=== PATIENT | female | born 1985 | race Caucasian/White ===

== ENCOUNTER 2022-08-19 08:30 | Outpatient (CLI) | payer BC, SELFPAY ==
[2022-08-19 17:55] LABS: Albumin* 4.3 g/dL (3.3-5.0)
[2022-08-19 17:56] LABS: Chloride* 106 mmol/L (96-114); Potassium* 4.5 mmol/L (3.6-5.1); Sodium* 138 mmol/L (135-149)
[2022-08-19 17:58] LABS: Bilirubin Total* 0.3 mg/dL (0.1-1.5); Carbon Dioxide* 24 mmol/L (20-32); Cholesterol* 239 mg/dL (90-199); Creatinine* 0.9 mg/dL (0.5-1.5); Estimated Glomerular Filt Rate 84 ml/min
[2022-08-19 17:59] LABS: Alanine Aminotransferase* 20 U/L (4-35); Alkaline Phosphatase* 98 U/L (40-150); Aspartate Amino Transferase* 26 U/L (12-35); Blood Urea Nitrogen* 15 mg/dL (5-24); Calcium* 8.3 mg/dL (8.4-10.6); Glucose* 88 mg/dL (60-115); HDL Cholesterol* 53 mg/dL (>=50); LDL Cholesterol Calculated 154 mg/dL (<100); Triglycerides* 161 mg/dL (40-149)
== END 2022-08-19 08:31 | disposition home or self-care (01) ==
PROVIDERS: PCP Physician Assistant Medical; Visit Provider Physician Assistant Medical
DX: Z01.419 Encounter for gynecological examination (general) (routine) without abnormal findings (principal); E03.9 Hypothyroidism, unspecified; I10 Essential (primary) hypertension; Z13.6 Encounter for screening for cardiovascular disorders
CPT/HCPCS: 80053; 80061; 84443

== ENCOUNTER 2023-08-19 08:08 | Outpatient (CLI) | payer BC, SELFPAY | END 2023-08-19 08:09 | disposition home or self-care (01) | LOC: NFLDREF 08-22 02:33 | PROVIDERS: PCP Physician Assistant Medical; Referring Provider Physician Assistant Medical; Visit Provider Physician Assistant Medical | DX: Z01.419 Encounter for gynecological examination (general) (routine) without abnormal findings (principal); E03.9 Hypothyroidism, unspecified; I10 Essential (primary) hypertension; R05.9 Cough, unspecified; Z78.9 Other specified health status; Z13.6 Encounter for screening for cardiovascular disorders | CPT/HCPCS: 80053; 80061; 84443 ==

== ENCOUNTER 2024-09-29 08:11 | Outpatient (CLI) | payer BC, SELFPAY | END 2024-09-29 08:12 | disposition home or self-care (01) | LOC: NFLDREF 10-03 02:29 | PROVIDERS: PCP Physician Assistant Medical; Referring Provider Physician Assistant Medical; Visit Provider Physician Assistant Medical | DX: I10 Essential (primary) hypertension (principal); E03.9 Hypothyroidism, unspecified; G43.009 Migraine without aura, not intractable, without status migrainosus; F32.0 Major depressive disorder, single episode, mild; J45.909 Unspecified asthma, uncomplicated; A60.04 Herpesviral vulvovaginitis; J32.0 Chronic maxillary sinusitis | CPT/HCPCS: 80053; 80061 ==

== ENCOUNTER 2025-01-03 14:33 | Outpatient (CLI) | payer OTHER, SELFPAY ==
--- NOTE | 2025-01-03 15:00 | CRLHL7_ITS ---
For Patients: As a result of the Century Cures Act, medical imaging exams and procedure reports are released immediately into your electronic medical record. You may view this report before your referring provider. If you have questions, please contact your health care provider. BILATERAL SCREENING MAMMOGRAM WITH COMPUTER-AIDED DETECTION AND TOMOSYNTHESIS TECHNIQUE: CC, MLO and Implant displaced views were obtained. These mammographic images have been obtained using full-field digital technique. These mammographic images were interpreted with the benefit of computer-aided detection. Breast Tomosynthesis was used in this interpretation. COMPARISON FILM: Baseline. FINDINGS: The breasts are heterogeneously dense, which may obscure small masses. IMPRESSION: There is no radiographic evidence for malignancy. ASSESSMENT: BI-RADS Category 2: Benign RECOMMENDATION: Routine screening mammogram in 1 year. A lay language report of this examination will be provided to the patient. Rodger Yap M.D. Diagnostic Radiologist [email or web address] SP/Dictated by: Rodger Yap MD @ 01/04/2025 1:17:00 PM (Electronically Signed)
== END 2025-01-03 14:34 | disposition home or self-care (01) ==
LOC: MAMMO 14:34
PROVIDERS: PCP Physician Assistant Medical; Visit Provider Physician Assistant Medical
DX: Z12.31 Encounter for screening mammogram for malignant neoplasm of breast (principal); R92.333 Mammographic heterogeneous density, bilateral breasts
CPT/HCPCS: 77063; 77067

== ENCOUNTER 2025-02-06 10:35 | Day surgery (SDC) | payer OTHER, SELFPAY ==
[2025-02-06] VITALS (17 sets, daily range): BP systolic 123–151; BP diastolic 58–96; PULSE 71–94; RESP 14–20; TEMP 35.9–36.9; O2SAT 96–99; BMI 31.5
--- OUTSIDE RECORDS SUMMARY | 2025-02-06 10:37 | XMS_ITS | Clinical Summary ---
[facility] Address [address], [place] [address] Care Team Providers Care Gateman Name Role Phone Unavailable Primary Care Provider Unavailabl e Source Comments You are receiving this document as you are listed as the primary care provider,follow-up provider, or the patient has been referred to you for consultation.This is in compliance with the Medicare andCity Hospital[facility] EHR Incentive Program,which states Providers who transition their patient to another setting of careor provider of care or refers their patient to another provider of care shouldprovide summary care record for each transition of care or referral. [facility] Allergies Active Allergy Reactions Criticality Noted Date Comments Influenza Virus Vaccine Anaphylaxis High 02/23/2021 Penicillins Anaphylaxis High 02/23/2021 Immunizations Immunization Administration Dates Next Due Moderna Monovalent 12+ 03/23/2021,02/23/2021 Social History Tobacco Use Types Packs/Day Years Used Date Smoking Tobacco: Never Assessed Comments Unknown Sex and Gender Information Value Date Recorded Sex Assigned at Not on file Legal Sex Female 3:29 AM CDT Gender Identity Not on file Sexual Orientation Not on file Plan of Treatment Health Maintenance Due Date Last Done Comments Cervical Cancer Screening Due 1983 Hep C Screening (Preventive Services) 1983 Mammogram 1983 HIV Screening (Preventive Services) 1999 Adult Preventive Visit 2001 HepB (1) 2002 COVID-19 Vaccine ( - 2023-2 5 season) 2024 03/23/2021, 02/23/2021 Influenza (#1) 2024 08/17/2019 DTaP/Tdap/Td (3 - Tdap) 02/03/2026 02/04/20 16, 09/07/2013 Zoster/Shingles (1 of 2) 2033 HPV Vaccine Aged Out No longer eligi ble based on patient's age to complete this topic HepA Aged Out No longer eligi ble based on patient's age to complete this topic Hib Aged Out No longer eligi ble based on patient's age to complete this topic IPV (Polio) Aged Out No longer eligi ble based on patient's age to complete this topic MCV4 Aged Out No longer eligi ble based on patient's age to complete this topic Meningococcal B Aged Out No longer el igible based on patient's age to complete this topic Pneumococcal Aged Out No longer eligi ble based on patient's age to complete this topic Insurance [employer] [facility] [employer]AL
--- OUTSIDE RECORDS SUMMARY | 2025-02-06 10:37 | XMS_ITS | Clinical Summary ---
Author Organization [facility] Address [address] [place] [id number] Care Team Providers Care Paper Final Inspector Name Role Phone Codi Qureshi MD Primary Care Provider Allergies Active Allergy Reactions Criticality Noted Date Comments Egg Derived Other - Describe In Comment Field High 02/09/2012 Throat swells Mustard Tongue Swelling 06/21/2012 Mustard seed-swelling under the tongue Penicillins Hives High 02/09/2012 Throat swells Medications drospirenone-e thinyl estradiol (OCELLA) 3-0.03 mg tablet Take 1 tablet by mouth once daily. 1 Package 0 2 Active cetirizine (ZYRTEC) 10 mg tablet Take 1 tablet by mouth once daily. 0 2 Active montelukast (SINGULAIR) 10 mg tablet Take 1 tablet by mouth at bedtime. 0 2 Active acyclovir (ZOVIRAX) 800 mg tablet Take by mouth. Pt takes 1 tab daily 50 tablet 0 2 Active fluticasone-sa lmeterol (ADVAIR DISKUS) 250-50 mcg/Dose diskus inhaler Inhale 1 Puff by mouth 2 times daily. 1 Inhaler 0 2 Active levothyroxine (SYNTHROID) 88 mcg tablet Take 1 tablet by mouth once daily. 0 2 Active fluticasone, 50 mcg per actuation, nasal (FLONASE) 50 mcg/actuation nasal spray Inhale 2 Sprays into both nostrils once daily. 1 Bottle 0 2 Active omega-3 fatty acids-vitamin E (FISH OIL) 1,000 mg Cap Take by mouth once daily. 0 2 Active Cyanocobalamin (VITAMIN B-12) 2,000 mcg tablet Take 1 tablet by mouth once daily. 0 2 Active cholecalcifero l (VITAMIN D-3) 2,000 unit capsule Take 1 capsule by mouth once daily. 0 2 Active albuterol (PROVENTIL) 0.083 % neb solutionIndica tions:Unspecif ied asthma(493.90) Inhale 3 mL via a nebulizer every hour if needed for Wheezing. One ampule in nebulizer as needed 25 Neb 0 2 Active albuterol HFA (PRO-AIR,KOMAL TOMMY,PROVENTIL) 90 mcg/actuation inhalerIndicat ions:Unspecifi ed asthma(493.90) Inhale 2 Puffs by mouth every 4 hours if needed for Wheezing. 1 Inhaler 3 2 Active Potassium Gluconate 595 (99) mg tablet Take by mouth. 0 2 Active sertraline (ZOLOFT) 50 mg tablet Take 1 tablet by mouth once daily. 0 2 Active EPINEPHrine (EPIPEN) 0.3 mg/0.3 mL (1:1,000) injection Inject 0.3 mg intramuscular one time if needed for Allergic Reaction for 1 dose. 2 Each 3 Active Immunizations Immunization Administration Dates Next Due Hepatitis B (Adult) 10/29/2012,09/13/2012 Social History Tobacco Use Types Packs/Day Years Used Date Smoking Tobacco: Never Smokeless Tobacco: Never Alcohol Use Standard Drinks/Week Comments Not Asked 0 (1 standard drink = 0.6 oz pur e alcohol) Comments Unknown Sex and Gender Information Value Date Recorded Sex Assigned at Not on file Legal Sex Female 8:27 AM RESPIRATORY CARE PRACTITIONER Gender Identity Not on file Sexual Orientation Not on file Obstetrics History Last Filed Vital Signs Vital Sign Reading Time Taken Comments Blood Pressure 133/86 11/15/2012 10:54 AM RESPIRATORY CARE PRACTITIONER Pulse 105 11/15/2012 10:54 AM RESPIRATORY CARE PRACTITIONER Temperature 36.3 C (97.4 F) 02/09/2012 9:34 AM CDT Respiratory Rate - - Oxygen Saturation - - Inhaled Oxygen Concentration - - Weight 86.9 kg (191 lb 9.6 oz) 06/21/2012 2:14 P M CDT Height 167.6 cm (5' 6) 02/09/2012 9:34 AM CDT Body Mass Index 30.93 02/09/2012 9:34 AM CDT Plan of Treatment Health Maintenance Due Date Last Done Comments Tdap 1994 Depression screening for age 12+ 1995 HIV for age 15-65 1998 BMI (ht and wt on same day) for age 18+ 2001 Hepatitis C screening for age 18-79 2001 Tetanus booster 2003 COVID-19 vaccine series (2023- season) 2024 03/23/2021, 02/23/2021 Influenza Vaccine (Season Ended) 2025 Pap test for age 21-65 08/19/2025 , 08/19/2022, 05/28/2017, Additional history exists Pneumococcal series for age 6-49 Aged Out No longer eligible based on patient's age to complete this topic Procedures Procedure Name Priority Date/Time Associated Diagnosis Comments HPV HIGH RISK Routine 08/19/2022 8:30 AM CDT from Last 3 Months or Most Recently Relevant to Health Maintenance Results * HPV HIGH RISK (08/19/2022 8:30 AM CDT) TYPE 16 Negative Negative 08/22/2022 11:13 AM CDT [facility] [employer] [facility] TYPE 18 Negative Negative 08/22/2022 11:13 AM CDT [facility] OTHER HIGH RISK TYPES Negative Negative 08/22/2022 11:13 AM CDT [facility] Other (Cervical) 08/19/2022 8:30 AM CDT 08/20/2022 7:46 AM CDT [facility] - 08/22/2022 11:13 AM CDT HPV types 16, 18, 31, 33, 35, 39, 45, 51, 52, 56, 58, 59, 66 and 68 DNA were undetectable or below the pre-set threshold. Methodology: Abelardo Kathryn 4800 HPV Test us Amy Calles PA-C MICROBIOLOGY Final Result [facility] [address] [place] [address], [place] from Last 3 Months or Most Recently Relevant to Health Maintenance Insurance [facility] Care Teams Paper Final Inspector Relationship Specialty Start Date End Date Codi Qureshi MD PCP - General Family Practice 09/29/12
--- OUTSIDE RECORDS SUMMARY | 2025-02-06 10:37 | XMS_ITS | Clinical Summary ---
Author Organization [facility] Address [address] , [address] [place] [address] Phone Care Team Providers Care Medical Receptionist Medical Assistant Name Role Phone Crystal Macias Unavailable Unavailable Conditions or Problems Problem Name Problem Code Onset Date Status Entry Date Provider Comment Standard Description Annotate Migraine headaches 37610238 (SNOMED CT) Active Tom Sandoval MD Migraine Medications Medication Instructions Start Date Stop Date Generic Name NDC Provider TOPIRAMATE 25 MG CPSP topiramate [id number] Tom Sandoval MD TOPIRAMATE 25 MG TABS Take 1 tablet by mouth twice a day 0 topiramate [id number] Tom Sandoval MD MONTELUKAST SODIUM 10 MG TABS montelukast [id number] Tom Sandoval MD WEGOVY 0.5 MG/0.5ML SOAJ semaglutide (weight loss) [id number] Tom Sandoval MD TOPIRAMATE 25 MG CPSP topiramate [id number] Tom Sandoval MD DUPIXENT 300 MG/2ML SOAJ dupilumab [id number] Tom Sandoval MD Medications Administered No information available. 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 Telemedicine: Telemedicine V isit Med Follow up r/s from 12/06 Pt r/s fax MEDS REVIEW Done Documenta tion of current medications (procedure) Plan of Care Type Date Detail Pending order Follow up Pending order Patient Instruct ions Pending order Follow up DAVONTE Pending order Patient Instruct ions Procedures Code Procedure Name Date Entry Date ORDERS Follow up DAVONTE [facility]-[id number] Documentation of current medicatio ns [id number] Established Patient Audio-Video- Low MDM or 20 minutes ORDERS Patient Instructions ORDERS Patient Instructions [facility]-[id number] Documentation of current medicatio ns [id number] Occipital nerve bloc k (Greater ONB) bilateral [id number] Lesser ONB/3rd ONB/Auricular/Preauricular,bilateral Vital Signs No information available. Immunizations No information available. Advance Directives No information available.
--- NOTE | 2025-02-06 10:54 | CRLHL7_ITS ---
For Patients: As a result of the Century Cures Act, medical imaging exams and procedure reports are released immediately into your electronic medical record. You may view this report before your referring provider. If you have questions, please contact your health care provider. Indication: Right upper quadrant abdominal pain Technique: Sonography was performed limited to the structures discussed below. Comparison: None Findings: The common bile duct measures 5 millimeters which is normal. The gallbladder wall is abnormally thickened at 4 millimeters. Greater than 3 millimeters is considered abnormal. No pericholecystic fluid noted. There was a reported sonographic Jorgensen`s sign. Sludge is noted with probable noncalcified stones within the sludge. There is also a small shadowing echogenic focus in the gallbladder neck that probably represents a stone. Combined findings raise the possibility of very early acute cholecystitis which should be considered in the appropriate clinical setting. Appropriate consultation is advised. Impression: Combined findings raise the possibility of very early acute cholecystitis in the appropriate clinical setting. Appropriate consultation is advised. Dictated by Naveed Cadena MD @ 02/06/2025 11:25:30 AM (Electronically Signed)
--- NOTE | 2025-02-06 11:05 | ED.ABDPAIN ---
HPI - Abdominal Pain General Date Seen: 02/06/25 Chief Complaint: Abdominal Pain Stated Complaint: stabbing pain in right abdominal area Time Seen by Provider: 02/06/25 10:38 Source: patient Mode of arrival: ambulatory Limitations: no limitations History of Present Illness HPI narrative: Patient is a 39-year-old female with no pertinent medical problems presenting to the emergency department for right upper quadrant abdominal pain. She states starting 3 days ago she started having right upper quadrant pain. Pain is worse after she eats and when she lays down. Pain improves when she is sitting. States the pain is sharp stabbing pain in the right upper quadrant. Has not noticed any fevers or chills. Did not come in initially because she thought it was constipation but and she will bowel movement this morning with no improvement in her symptoms. She states the bowel movement was otherwise normal. Has had no previous abdominal surgeries. Has a decreased appetite due to the pain with eating. Last had a glass some mild Crohn 21:00 yesterday. Has not eaten or drink anything further since then. Does states she is feeling dehydrated. Denies chest pain, shortness of breath, headache, lightheadedness, dizziness, weakness, numbness. No other concerns noted at this time. Related Data Home Medications ?Medication ?Instructions ?Recorded ?Confirmed dupilumab 300 mg/2 mL subcutaneous 300 mg subcut .as Direc 08/19/22 02/06/25 syringe semaglutide (weight loss) 0.5 0.5 mg subcut QWEEK 08/18/24 02/06/25 mg/0.5 mL subcutaneous pen injector (Madai) levothyroxine 100 mcg tablet 100 mcg PO DAILY 02/06/25 02/06/25 topiramate 25 mg sprinkle capsule 25 mg PO BID 02/06/25 02/06/25 Previous Rx's ?Medication ?Instructions ?Recorded albuterol sulfate 90 mcg/actuation 2 puff inhalation Q4-6H PRN 08/19/23 aerosol inhaler shortness of breath or wheezing #6.7 grams norgestimate 0.25 mg-ethinyl 1 tab PO QDAY #84 tabs 09/29/24 estradiol 0.035 mg tablet (Sprintec (28)) sertraline 100 mg tablet 200 mg (2 x 100 mg) PO QDAY #180 09/29/24 tabs valacyclovir 500 mg tablet 500 mg PO DAILY #90 tabs 09/29/24 lisinopril 20 mg tablet 20 mg PO DAILY #90 tabs 10/25/24 hydrocodone 5 mg-acetaminophen 325 1 tab PO Q6H PRN pain #15 tabs 02/06/25 mg tablet sennosides 8.6 mg capsule (senna) 8.6 mg PO DAILY PRN constipation 02/06/25 #90 caps Allergies Allergy/AdvReac Type Severity Reaction Status Date / Time egg yolk Allergy Severe Chest Pain Verified 02/06/25 10:46 penicillin V Allergy Severe Swelling Verified 02/06/25 10:46 of Lip/Tongue/Throat banana Allergy Mild itchy Verified 02/06/25 10:46 inner ear mechlorethamine Allergy Mild makes me Verified 02/06/25 10:46 sick mustard Allergy Mild makes me Verified 02/06/25 10:46 sick kiwi Allergy Unknown scratchy Verified 02/06/25 10:46 throat seasonal Allergy Mild Uncoded 09/29/24 07:34 Review of Systems Status of ROS Reports: 10 or more systems reviewed and unremarkable except as noted in History and below [facility] Medical History Bronchitis ?J40 - Bronchitis, not specified as acute or chronic (ICD-10) Surgical History History of sinus surgery ?Z98.890 - Other specified postprocedural states (ICD-10) History of section ?Z98.891 - History of uterine scar from previous surgery (ICD-10) History of breast augmentation ?Z98.82 - Breast implant status (ICD-10) History of anterior cruciate ligament surgery (01/26/12) ?Z98.890 - Other specified postprocedural states (ICD-10) Family History Paternal Grandfather Diabetes High cholesterol High blood pressure Paternal Grandmother Diabetes High cholesterol High blood pressure Maternal Grandfather Heart disease Skin cancer Maternal Grandmother Heart disease Skin cancer Father High cholesterol High blood pressure Sister High blood pressure Mother Skin cancer Social History Narrative: consumes alcohol occasionally, does not use illicit drugs, non smoker, oral contraceptives as primary control What is your current living situation?: I presently have a place to live Problems where you live: no known problems In the past 12 months, utilities in danger of being shut off: no In past 12 months, lack of transportation kept you from medical appts, meetings, work, or getting things needed for daily living: no In the past 12 mos, have been you worried that your food would run out before you had money to buy more?: never true In the past 12 mos, the food you bought just didn't last and you didn't have money to buy more?: never true Smoking Status: Never smoker Do you use any of these nicotine containing products: None How often do you have a drink containing alcohol: 2-4 times a month AUDIT-C Alcohol total score: 2 Non-prescribed substance use: denies use How often does anyone, including family, friends and others, physically hurt you: never How often does anyone, including family, friends and others, insult or talk down to you: never How often does anyone, including family, friends and others, threaten you with harm: never How often does anyone, including family, friends and others, scream or curse at you: never service: No Exam Narrative: Exam Narrative: Const: Well-nourished, Well-developed, in mild distress Eyes: PERRL, no conjunctival injection, and symmetrical lids HENT: Atraumatic external nose and ears. Moist mucous membranes. Neck: Symmetric, trachea midline, No thyromegaly. CVS: RRR, No murmurs or gallops. Peripheral pulses 2+ and equal in all extremities RESP: Unlabored respiratory effort. Clear to auscultation bilaterally. GI: Right upper quadrant tenderness, no tenderness noted rest of abdomen. Positive Jorgensen sign. Nondistended, No rebound or guarding. MSK:Extremities w/o deformity, Normal Active ROM Skin: Warm, Dry. No rashes or lesions. Neuro: Normal Muscle tone, No focal neurological deficits. Psych: Awake, Alert, & Oriented x3. Appropriate mood and affect. Const: Vital Signs, click to edit/add: Vital Signs - 24 hr 02/06/25 10:38 02/06/25 12:00 02/06/25 14:55 Temperature 98.5 F 98.5 F Pulse Rate 81 Pulse Rate [Pulse Oximeter] 90 86 Respiratory Rate 18 16 20 Blood Pressure 132/82 Blood Pressure [Ri ght Upper Arm] 145/94 H 134/96 H Pulse Oximetry 99 99 98 Oxygen Delivery Me thod Room Air Room Air Room Air 02/06/25 15:00 02/06/25 15:05 02/06/25 15:10 Temperature Pulse Rate 85 84 80 Pulse Rate [Pulse Oximeter] Respiratory Rate 17 16 16 Blood Pressure 130/83 129/78 124/76 Blood Pressure [Ri ght Upper Arm] Pulse Oximetry 97 97 96 Oxygen Delivery Me thod 02/06/25 15:15 02/06/25 15:20 02/06/25 15:30 Temperature 97.7 F 96.6 F L Pulse Rate 78 80 88 Pulse Rate [Pulse Oximeter] Respiratory Rate 14 16 16 Blood Pressure 128/77 123/75 124/82 Blood Pressure [Ri ght Upper Arm] Pulse Oximetry 97 96 98 Oxygen Delivery Me thod Room Air 02/06/25 15:30 02/06/25 15:45 02/06/25 16:00 Temperature 96.6 F L 97.0 F L 97.6 F Pulse Rate 88 83 75 Pulse Rate [Pulse Oximeter] Respiratory Rate 16 16 16 Blood Pressure 124/82 126/81 133/87 Blood Pressure [Ri ght Upper Arm] Pulse Oximetry 98 98 98 Oxygen Delivery Me thod Room Air Room Air Room Air 02/06/25 16:15 02/06/25 16:30 02/06/25 17:00 Temperature 97.5 F L 97.5 F L 97.5 F L Pulse Rate 71 73 74 Pulse Rate [Pulse Oximeter] Respiratory Rate 16 16 16 Blood Pressure 143/92 H 143/86 H 142/92 H Blood Pressure [Ri ght Upper Arm] Pulse Oximetry 98 99 99 Oxygen Delivery Me thod Room Air Room Air Room Air Course Vital Signs Vital signs: Initial Vital Signs Temperature 98.5 F 02/06/25 10:38 Temperature Source Temporal Artery Scan 02/06/25 10:38 Pulse Rate 90 02/06/25 10:38 Respiratory Rate 18 02/06/25 10:38 Blood Pressure 145/94 H 02/06/25 10:38 Blood Pressure Mean 111 H 02/06/25 10:38 Blood Pressure Position Sitting 02/06/25 10:38 Pulse Oximetry 99 02/06/25 10:38 Oxygen Delivery Method Room Air 02/06/25 10:38 Vital Signs Temperature 98.5 F 02/06/25 10:38 Pulse Rate 90 02/06/25 10:38 Respiratory Rate 18 02/06/25 10:38 Blood Pressure 145/94 H 02/06/25 10:38 Pulse Oximetry 99 02/06/25 10:38 Oxygen Delivery Method Room Air 02/06/25 10:38 Temperature 97.5 F L 02/06/25 17:00 Pulse Rate 74 02/06/25 17:00 Respiratory Rate 16 02/06/25 17:00 Blood Pressure 142/92 H 02/06/25 17:00 Pulse Oximetry 99 02/06/25 17:00 Oxygen Delivery Method Room Air 02/06/25 17:00 Medications Administered Medications: Discontinued Medications Generic Name Dose Route Start Last Admin Trade Name Freq PRN Reason Stop Dose Admin Acetaminophen 650 mg 02/06/25 14:47 02/06/25 16:42 Acetaminophen 325 Mg Tablet PO 02/06/25 14:48 650 mg ONCE ONE Administration Bupivacaine HCl 30 ml 02/06/25 14:00 02/06/25 14:00 Bupivacaine 0.5% 30 Ml INJECTION 02/06/25 14:01 20 ml ONCE ONE Administration Ciprofloxacin 400 mg 02/06/25 13:12 02/06/25 13:50 Ciprofloxacin 400 Mg/200 Ml Inj IVPB 02/06/25 13:13 400 mg ONCE ONE Administration Lactated Ringer's 1,000 mls @ 1,000 mls/hr 02/06/25 10:54 02/06/25 11:34 Lactated Ringers 1000 Ml IV 02/06/25 11:53 1,000 mls/hr .Q1H ONE Administration Lactated Ringer's 1,000 mls @ 35 mls/hr 02/06/25 14:30 02/06/25 15:23 Lactated Ringers 1000 Ml IV 02/07/25 19:03 30 mls/hr .Q24H PAULINE Infusion Metronidazole 500 mg 02/06/25 13:12 02/06/25 13:50 Metronidazole 500 Mg/100 Ml For Iv IVPB 02/06/25 13:13 500 mg ONCE ONE Administration Morphine Sulfate 4 mg 02/06/25 12:11 02/06/25 12:19 Morphine 4 Mg/Ml Inj IVP 02/06/25 12:12 4 mg ONCE ONE Administration Ondansetron HCl 4 mg 02/06/25 12:11 02/06/25 12:19 Ondansetron 2 Mg/Ml Inj IVP 02/06/25 12:12 4 mg ONCE ONE Administration MDM - Abdominal Pain MDM Narrative Medical decision making narrative: Patient is a 39-year-old female presenting for right upper quadrant abdominal pain. By my concern is gallbladder disease. Could be cholelithiasis or cholecystitis do a positive Jorgensen sign. Will do a ultrasound for better evaluation. Also do a CBC, CMP, urinalysis, lipase, COVID/flu/RSV. She does states feeling dehydrated and a L of fluids will be given. She states she does not need anything for pain or nausea at this time. My concern for pancreatitis, diverticulitis, appendicitis is lower due to location of symptoms. Patient's lab work shows no concerning abnormalities. She did start having more pain so morphine given for pain and Zofran given for possible an associated nausea. Liver enzymes and lipase within normal limits. Ultrasound returned showing concerns of cholecystitis. I spoke to the on-call general surgeon, Dr. Velarde, she accepted the patient for surgery. Patient will be transferred to the OR. Lab Data Labs: Lab Results 02/06/25 02/06/25 Range/Units 11:30 Unknown WBC 5.34 (4.50-11.00) K/uL RBC 4.35 (4.00-5.20) m/uL Hgb 13.5 (12.0-16.0) gm/dL Hct 41.6 (33.0-51.0) % MCV 96 (80-100) fL MCH 31 (26-34) pg MCHC 33 (32-36) gm/dL RDW Coeff of Enrrique 12.4 (11.5-15.5) % Plt Count 210 (140-440) K/uL Neut % (Auto) 54.2 (42.0-72.0) % Lymph % (Auto) 32.2 (20-44) % [place] % (Auto) 6.4 (0.0-11.0) % Eos % (Auto) 6.6 (0.0-7.0) % Baso % (Auto) 0.4 (0.0-3.0) % Neut # (Auto) 2.90 (1.7-7.0) K/uL Lymph # (Auto) 1.72 (0.90-2.90) K/uL [place] # (Auto) 0.30 (0.00-0.90) K/UL Eos # (Auto) 0.35 (0.00-0.50) K/uL Baso # (Auto) 0.02 (0.00-0.30) K/uL Abs Immat Gran (auto) 0.01 (0.00-0.30) K/uL Imm/Tot Granulo (auto) 0.2 % Sodium 139 (135-149) mmol/L Potassium 4.0 (3.6-5.1) mmol/L Chloride 106 (96-114) mmol/L Carbon Dioxide 22 (20-32) mmol/L Anion Gap 11 (7-15) mEq/L BUN 10 (5-24) mg/dL Creatinine 0.9 (0.5-1.5) mg/dL Estimated Creat Clear 77.01 Estimated GFR 82 ml/min Glucose 90 (60-115) mg/dL Calcium 9.4 (8.4-10.6) mg/dL Total Bilirubin 0.6 (0.1-1.5) mg/dL Direct Bilirubin 0.3 (0.0-0.5) mg/dL AST 21 (12-35) U/L ALT 12 (4-35) U/L Alkaline Phosphatase 86 (40-150) U/L Total Protein 7.9 (6.0-8.3) g/dL Albumin 4.7 (3.3-5.0) g/dL Lipase 87 (23-300) U/L Urine Color Dark yellow (Yellow) Urine Appearance Slightly Cloudy A (Clear) Urine pH 6.0 (5.0-8.5) Ur Specific [place] 1.025 (1.000-1.030) Urine Protein 1+ A (Negative) Urine Glucose (UA) Negative (Negative) Urine Ketones Trace A (Negative) Urine Blood Negative (Negative) Urine Nitrite Negative (Negative) Urine Bilirubin 1+ A (Negative) Urine Urobilinogen 0.2 (0.2-1.0) Ur Leukocyte Esterase Negative (Negative) Urine RBC 0-2 (0-2) Urine WBC 0-2 (0-5) Ur Squamous Epith Cells Many A (None-Few) Amorphous Sediment Many A (None) Urine Bacteria Many A (None) Urine Mucus Many A (None) SARS-CoV-2 (PCR) Negative SARS-CoV-2 (Negative) Influenza Type A (PCR) Negative PCR FLU A (Negative) Influenza Type B (PCR) Negative PCR FLU B (Negative) RSV (PCR) Negative PCR RSV (Negative) Imaging Data Gallbladder ultrasound: Attestation: I have reviewed the pertinent imaging results. Radiologist's impression: Combined findings raise the possibility of very early acute cholecystitis in the appropriate clinical setting. Appropriate consultation is advised. Dictated by Naveed Cadena MD @ 02/06/2025 11:25:30 AM Discharge Plan Discharge Clinical Impression: Acute cholecystitis Patient Disposition: XFER to OR Condition: Stable
[2025-02-06] MEDS: LACTATED RINGERS 1000 ML 1,000 ML IV (11:34)
[2025-02-06 11:43] LABS: Appearance Urine Slightly Cloudy (Clear); Bilirubin Urine 1+ (Negative); Blood Urine Negative (Negative); Color Urine Dark yellow (Yellow); Glucose Urine Negative (Negative); Ketones Urine Trace (Negative); Leukocyte Esterase Urine Negative (Negative); Nitrite Urine Negative (Negative); Protein Urine 1+ (Negative); Specific Gravity Urine 1.025 (1.000-1.030); Urobilinogen Urine 0.2 (0.2-1.0)
[2025-02-06 11:45] LABS: Basophils Absolute Auto 0.02 K/uL (0.00-0.30); Basophils Percent Auto 0.4 % (0.0-3.0); Eosinophils Absolute Auto 0.35 K/uL (0.00-0.50); Eosinophils Percent Auto 6.6 % (0.0-7.0); Hematocrit 41.6 % (33.0-51.0); Hemoglobin* 13.5 gm/dL (12.0-16.0); Immature Granulocytes Abs Auto 0.01 K/uL (0.00-0.30); Immature Granulocytes Pct Auto 0.2 %; Lymphocytes Absolute Auto 1.72 K/uL (0.90-2.90); Lymphocytes Percent Auto 32.2 % (20-44); Mean Corpuscular HGB Conc 33 gm/dL (32-36); Mean Corpuscular Hemoglobin 31 pg (26-34); Mean Corpuscular Volume 96 fL (80-100); Monocytes Percent Auto 6.4 % (0.0-11.0); Neutrophils Percent Auto 54.2 % (42.0-72.0); Platelet Count* 210 K/uL (140-440); RDW Coefficient of Variation % 12.4 % (11.5-15.5); Red Blood Count 4.35 m/uL (4.00-5.20); White Blood Count* 5.34 K/uL (4.50-11.00)
[2025-02-06 11:46] LABS: Slide Review Reflex No
--- OUTSIDE RECORDS SUMMARY | 2025-02-06 11:51 | XMS_ITS | Clinical Summary ---
Author Organization [employer] [facility] [employer] [facility] Address [address] [place] [id number] Care Team Providers Care Procurement Analyst Name Role Phone Codi Qureshi MD Primary [...] on file Legal Sex Female 8:27 AM MANAGER PET Gender Identity Not on file Sexual Orientation Not on file Obstetrics History Last Filed Vital Signs Vital Sign Reading Time Taken Comments Blood Pressure 133/86 11/15/2012 10:54 AM MANAGER PET Pulse 105 11/15/2012 10:54 AM MANAGER PET Temperature 36.3 C (97.4 F) 02/09/2012 9:34 [...] 16 Negative Negative 08/22/2022 11:13 AM CDT [facility] AA Carpooling Website [facility] TYPE 18 Negative Negative 08/22/2022 11:13 AM CDT [facility] OTHER HIGH RISK TYPES Negative Negative 08/22/2022 11:13 AM CDT [facility] Other (Cervical) 08/19/2022 8:30 AM CDT 08/20/2022 7:46 AM CDT [facility] - 08/22/2022 11:13 AM CDT HPV types 16, 18, 31, 33, 35, 39, 45, 51, 52, 56, 58, 59, 66 and 68 DNA were undetectable or below the pre-set threshold. Methodology: Abelardo Kathryn 4800 HPV Test us Amy Calles PA-C MICROBIOLOGY Final Result [facility] [address] [place] [address], [place] from Last 3 Months or Most Recently Relevant to Health Maintenance Insurance [facility] Care Teams Procurement Analyst Relationship Specialty Start Date End Date Codi Qureshi MD PCP - General Family Practice 09/29/12
--- OUTSIDE RECORDS SUMMARY | 2025-02-06 11:51 | XMS_ITS | Clinical Summary ---
Author Organization [facility] Address [address] , [address] [place] [address] Phone Care Team Providers Care Infectious Diseases Physician Name Role Phone Crystal Macias Unavailable Unavailable Conditions or Problems Problem Name Problem Code Onset Date Status Entry Date Provider Comment Standard Description Annotate Migraine headaches 69178993 (SNOMED CT) Active Tom Sandoval MD Migraine Medications Medication Instructions Start Date Stop Date Generic Name NDC Provider TOPIRAMATE 25 MG CPSP topiramate [id number] Tom Sandoval MD TOPIRAMATE 25 MG TABS Take 1 tablet by mouth twice a day 0 topiramate [id number] Tom Sandoval MD MONTELUKAST SODIUM 10 MG TABS montelukast [id number] Tom Sandoval MD WEGOVY 0.5 MG/0.5ML SOAJ semaglutide (weight loss) [id number] Tom Sandoval MD TOPIRAMATE 25 MG CPSP topiramate [id number] oTm Sandoval MD DUPIXENT 300 MG/2ML SOAJ dupilumab [id number] Tom Sandoval MD Medications Administered No information [...] imaging R SMOK STATUS 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 smoker 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 Telemedicine: Telemedicine V isit Med Follow up r/s from 12/06 Pt r/s fax MEDS REVIEW Done Documenta tion of current medications (procedure) Plan of Care Type Date Detail Pending order Follow up Pending order Patient Instruct ions Pending order Follow up DAVONTE Pending order Patient Instruct ions Procedures Code Procedure Name Date Entry Date ORDERS Follow up DAVONTE [id number] Documentation of current medicatio ns [id number] Established Patient Audio-Video- Low MDM or 20 minutes ORDERS Patient Instructions ORDERS Patient Instructions [id number] Documentation of current medicatio ns [id number] Occipital nerve bloc k (Greater ONB) bilateral [id number] Lesser ONB/3rd ONB/Auricular/Preauricular,bilateral Vital Signs No information available. Immunizations No information available. Advance Directives No information available.
--- OUTSIDE RECORDS SUMMARY | 2025-02-06 11:51 | XMS_ITS | Clinical Summary ---
Author Organization [facility] Address [address] [address] Care Team Providers Care Ornamental Machine Operator Name Role Phone Unavailable Primary Care Provider Unavailabl e Source Comments You are receiving this document as you are listed as the primary care provider,follow-up provider, or the patient has been referred to you for consultation.This is in compliance with the Medicare and[facility] Hospitalca[facility] EHR Incentive Program,which states Providers who transition their patient to another setting of careor provider of care or refers their patient to another provider of care shouldprovide summary care record for each transition of care or referral. [facility] Allergies Active Allergy Reactions Criticality Noted Date [...] age to complete this topic Insurance [facility] FEDERAL
[2025-02-06 11:58] LABS: Amorphous Sediment Urine Many; Bacteria Urine Many; Mucus Urine Many; RBC Urine 0-2 (0-2); Squamous Epithelial Cell Urine Many (None-Few); WBC Urine 0-2 (0-5)
[2025-02-06 12:00] LABS: Albumin* 4.7 g/dL (3.3-5.0); Chloride* 106 mmol/L (96-114)
[2025-02-06 12:01] LABS: Sodium* 139 mmol/L (135-149)
[2025-02-06 12:03] LABS: Alanine Aminotransferase* 12 U/L (4-35); Anion Gap 11 mEq/L (7-15); Aspartate Amino Transferase* 21 U/L (12-35); Blood Urea Nitrogen* 10 mg/dL (5-24); Carbon Dioxide* 22 mmol/L (20-32); Creatinine* 0.9 mg/dL (0.5-1.5); Est. Creatinine Clearance* 77.01; Estimated Glomerular Filt Rate 82 ml/min
[2025-02-06 12:04] LABS: Alkaline Phosphatase* 86 U/L (40-150); Bilirubin Direct* 0.3 mg/dL (0.0-0.5); Bilirubin Total* 0.6 mg/dL (0.1-1.5); Calcium* 9.4 mg/dL (8.4-10.6); Glucose* 90 mg/dL (60-115); Lipase* 87 U/L (23-300); Total Protein* 7.9 g/dL (6.0-8.3)
[2025-02-06] MEDS: ONDANSETRON 2 MG/ML inj 4 MG IVP (12:19)
[2025-02-06] MEDS: MORPHINE 4 MG/ML INJ IVP (12:19)
[2025-02-06 12:35] LABS: PCR FLU A Negative PCR FLU A (Negative); PCR FLU B Negative PCR FLU B (Negative); PCR RSV Negative PCR RSV (Negative); SARS PCR* Negative SARS-CoV-2 (Negative)
--- NOTE | 2025-02-06 13:12 | P.GSCN_ITS ---
History of Present Illness Consult details Date Seen: 02/06/25 Consult date: 02/06/25 Narrative: Patient states that on Thursday she started to have right upper quadrant abdominal pain. It was a dull ache that cough worse with eating and lying on her side. The pain has been constant throughout the weekend. She has never had pain like this before. Initially she thought it might be constipation, but she had a large bowel movement yesterday that did not improve things. She denies any associated nausea or vomiting. No diarrhea. No fevers at home. Review of Systems Status of ROS: Reports: 10 or more systems reviewed and unremarkable except as noted in History and below PFSH PFS Medical History Bronchitis ?J40 - Bronchitis, not specified as acute or chronic (ICD-10) Surgical History History of sinus surgery ?Z98.890 - Other specified postprocedural states (ICD-10) History of section ?Z98.891 - History of uterine scar from previous surgery (ICD-10) History of breast augmentation ?Z98.82 - Breast implant status (ICD-10) History of anterior cruciate ligament surgery (01/26/12) ?Z98.890 - Other specified postprocedural states (ICD-10) Family History Paternal Grandfather Diabetes High cholesterol High blood pressure Paternal Grandmother Diabetes High cholesterol High blood pressure Maternal Grandfather Heart disease Skin cancer Maternal Grandmother Heart disease Skin cancer Father High cholesterol High blood pressure Sister High blood pressure Mother Skin cancer Social History Narrative: consumes alcohol occasionally, does not use illicit drugs, non smoker, oral contraceptives as primary control What is your current living situation?: I presently have a place to live Problems where you live: no known problems In the past 12 months, utilities in danger of being shut off: no In past 12 months, lack of transportation kept you from medical appts, meetings, work, or getting things needed for daily living: no In the past 12 mos, have been you worried that your food would run out before you had money to buy more?: never true In the past 12 mos, the food you bought just didn't last and you didn't have money to buy more?: never true Smoking Status: Never smoker Do you use any of these nicotine containing products: None How often do you have a drink containing alcohol: 2-4 times a month AUDIT-C Alcohol total score: 2 Non-prescribed substance use: denies use How often does anyone, including family, friends and others, physically hurt you : never How often does anyone, including family, friends and others, insult or talk down to you: never How often does anyone, including family, friends and others, threaten you with harm: never How often does anyone, including family, friends and others, scream or curse at you: never service: No Meds Home Medications and Allergies Home Medications ?Medication ?Instructions ?Recorded ?Confirmed ?Type dupilumab 300 mg/2 mL subcutaneous 300 mg subcut .as Direc 08/19/22 02/06/25 History syringe semaglutide (weight loss) 0.5 0.5 mg subcut QWEEK 08/18/24 02/06/25 History mg/0.5 mL subcutaneous pen injector (Wegovy) Allergies Allergy/AdvReac Type Severity Reaction Status Date / Time egg yolk Allergy Severe Chest Pain Verified 02/06/25 10:46 penicillin V Allergy Severe Swelling Verified 02/06/25 10:46 of Lip/Tongue/Throat banana Allergy Mild itchy Verified 02/06/25 10:46 inner ear mechlorethamine Allergy Mild makes me Verified 02/06/25 10:46 sick mustard Allergy Mild makes me Verified 02/06/25 10:46 sick kiwi Allergy Unknown scratchy Verified 02/06/25 10:46 throat seasonal Allergy Mild Uncoded 09/29/24 07:34 Exam Narrative: Exam Narrative: General: Alert and oriented, nontoxic Respiratory: Equal breath rise bilaterally, maintained on room air CV: Well perfused Abdomen: Soft, some tenderness to palpation right upper quadrant with guarding. No rebound. No peritonitis. Const: Vital Signs, click to edit/add: Vital Signs - 24 hr 02/06/25 10:38 02/06/25 12:00 Temperature 98.5 F Pulse Rate [Pulse Oximeter] 90 86 Respiratory Rate 18 16 Blood Pressure [Ri ght Upper Arm] 145/94 H 134/96 H Pulse Oximetry 99 99 Oxygen Delivery Me thod Room Air Room Air Results Labs Labs: Abnormal lab results 02/06/25 Range/Units Unknown Urine Appearance Slightly Cloudy A (Clear) Urine Protein 1+ A (Negative) Urine Ketones Trace A (Negative) Urine Bilirubin 1+ A (Negative) Ur Squamous Epith Cells Many A (None-Few) Amorphous Sediment Many A (None) Urine Bacteria Many A (None) Urine Mucus Many A (None) Diabetes panel 02/06/25 Range/Units 11:30 Sodium 139 (135-149) mmol/L Potassium 4.0 (3.6-5.1) mmol/L Chloride 106 (96-114) mmol/L Carbon Dioxide 22 (20-32) mmol/L BUN 10 (5-24) mg/dL Creatinine 0.9 (0.5-1.5) mg/dL Glucose 90 (60-115) mg/dL Calcium 9.4 (8.4-10.6) mg/dL AST 21 (12-35) U/L ALT 12 (4-35) U/L Alkaline Phosphatase 86 (40-150) U/L Total Protein 7.9 (6.0-8.3) g/dL Albumin 4.7 (3.3-5.0) g/dL Calcium panel 02/06/25 Range/Units 11:30 Calcium 9.4 (8.4-10.6) mg/dL Albumin 4.7 (3.3-5.0) g/dL Pituitary panel 02/06/25 Range/Units 11:30 Sodium 139 (135-149) mmol/L Potassium 4.0 (3.6-5.1) mmol/L Chloride 106 (96-114) mmol/L Carbon Dioxide 22 (20-32) mmol/L BUN 10 (5-24) mg/dL Creatinine 0.9 (0.5-1.5) mg/dL Glucose 90 (60-115) mg/dL Calcium 9.4 (8.4-10.6) mg/dL Adrenal panel 02/06/25 Range/Units 11:30 Sodium 139 (135-149) mmol/L Potassium 4.0 (3.6-5.1) mmol/L Chloride 106 (96-114) mmol/L Carbon Dioxide 22 (20-32) mmol/L BUN 10 (5-24) mg/dL Creatinine 0.9 (0.5-1.5) mg/dL Glucose 90 (60-115) mg/dL Calcium 9.4 (8.4-10.6) mg/dL Total Bilirubin 0.6 (0.1-1.5) mg/dL AST 21 (12-35) U/L ALT 12 (4-35) U/L Alkaline Phosphatase 86 (40-150) U/L Total Protein 7.9 (6.0-8.3) g/dL Albumin 4.7 (3.3-5.0) g/dL All other labs normal. Imaging Abdominal ultrasound report/results: report reviewed and image reviewed Progress Note:A&P Assessment and plan (1) Acute cholecystitis: Status: Acute Plan Patient is a 39-year-old female with clinical history and workup suspicious for acute cholecystitis. Vital signs stable. No evidence of leukocytosis and LFTs within normal limits. Abdominal ultrasound shows some gallbladder wall thickening, sludge and stone within the neck of the gallbladder. I had a detailed conversation with the patient regarding the diagnosis of acute cholecystitis. We discussed the treatment options including observation with diet modification and laparoscopic cholecystectomy. We discussed the risks of surgery (including but not limited to) the risks of bleeding, infection, injury to other structures in the abdomen including bile duct injury, bile leak and conversion to an open operation. We discussed the possibility that the patient's pain not improve with surgery. We discussed the possibility of permanent post-operative diarrhea that may require medical management. Additionally, the conceivably of complications requiring additional surgery or further hospitalization were also discussed including the risks of [place], respiratory failure, stroke and blood clots. The patient voiced an understanding of our conversation, had the opportunity to ask questions, agreed to accept the risks of surgery and asked that we proceed with surgery.
[2025-02-06] MEDS: LACTATED RINGERS 1000 ML 1,000 ML 35 ML IV (13:29)
[2025-02-06] MEDS: metroNIDAZOLE 500 MG/100 ML for IV IVPB (13:50)
[2025-02-06] MEDS: CIPROFLOXACIN 400 MG/200 ML inj IVPB (13:50)
[2025-02-06] MEDS: BUPIVACAINE 0.5% 30 ML INJECTION (14:00)
--- NOTE | 2025-02-06 14:50 | PM.GSPRC ---
Operative Note Date of procedure: 02/06/25 Pre-op diagnosis: Acute cholecystitis Post-op diagnosis: Same, hydrops of the gallbladder Type of Procedure: Laparoscopic cholecystectomy Indications: Patient is a 39-year-old female with clinical workup and symptoms consistent with acute cholecystitis. Risks and benefits of operative intervention were discussed at length with the patient. Risks included but was not limited to: Bleeding, infection, risk of damage to surrounding structures, possible need for additional procedures, possible need to convert to an open operation and postoperative complications such as pneumonia, pulmonary emboli or MA. All questions and concerns were addressed with the patient agreeing to proceed. Procedure Description: After discussing the risks and benefits of the procedure, the patient signed informed consent.? The operative site was marked and the patient was brought to the operating room and placed on the operating table in supine position.? Care was taken to pad the patient's pressure points.?? The patient was then intubated by anesthesia.?? The operative site was then prepped and draped in the usual sterile fashion.? A time-out was then performed. Entrance to the abdomen was gained via a 5 mm Visiport in the left upper quadrant. The abdomen was insufflated and briefly surveyed for signs of injury. There was none. 11 mm umbilical port was placed as well as 2 working ports along the right costal margin. Patient was then placed in reverse Trendelenburg position with the right side up. The gallbladder was distended and difficult to grasp. A laparoscopic needle was used to decompress 60 mL of clear, mucous fluid consistent with hydrops of the gallbladder. The fundus was grasped and retracted cephalad. A small amount of dissection was needed to free omental adhesions from the gallbladder. The infundibulum was grasped. A combination of hook cautery and blunt dissection was used to carefully dissect out the cystic duct and artery until they could clearly be seen entering the gallbladder without any intervening structures. During this portion of the procedure a small tear in the body of the gallbladder occurred causing some spillage of mucus. No stones were spilled. The gallbladder was dissected off the cystic plate to achieve the critical view. Once this was achieved the cystic duct and artery were each clipped with 2 clips proximally and 1 clip distally and transected with the scissors. The gallbladder was then taken off of the liver bed. And removed from the abdomen using an Endo-Catch bag. The gallbladder bed was surveyed for hemostasis, which was excellent. A small amount of bile which had spilled was suctioned from the abdomen. The ports were then removed under direct vision. The umbilical port fascia was closed with 0 Vicryl. The skin was closed with absorbable subcuticular suture. Instrument sponge and needle counts were correct at the end of the case. The patient was then woken and transferred to the PACU in stable condition. Findings: Hydrops of the gallbladder Anesthesia: GETA Surgeon: Deana Velarde MD Estimated blood loss (mL): 10 Specimen: Gallbladder Condition: stable Disposition: PACU
--- NOTE | 2025-02-06 15:04 | P.ANES_ITS ---
Anesthesia Charges Start Date/Time Anesthesia Start Date: 02/06/25 Anesthesia Start Time: 13:29 Stop Date/Time Anesthesia Stop Date: 02/06/25 Anesthesia Stop Time: 14:59 Summary Emergency: DAVY Coding CPT Codes CPT Codes: ANESTH SURG UPPER ABDOMEN - 27588 ([id number]) P2 - PATIENT W/MILD SYST DISEASE, QK - DATAPOWER DEVELOPER 2-4 CNCRNT ANES PROC, QX - DOUGH PUNCHER SVC W/ MD MED DIRECTION Additional Codes: Summary - Emergency: DAVY ([id number])
--- NOTE | 2025-02-06 15:04 | P.ANES_ITS ---
Anesthesia Charges Start Date/Time Anesthesia Start Date: 02/06/25 Anesthesia Start Time: 13:29 Stop Date/Time Anesthesia Stop Date: 02/06/25 Anesthesia Stop Time: 14:59 Summary Emergency: CONDOMINIUM PROPERTY MANAGER Coding CPT Codes CPT Codes: ANESTH SURG UPPER ABDOMEN - 20873 ([id number]) P2 - PATIENT W/MILD SYST DISEASE, QK - EMPLOYEE COMMUNICATIONS SPECIALIST 2-4 CNCRNT ANES PROC, QX - CONDOMINIUM PROPERTY MANAGER SVC W/ MD MED DIRECTION Additional Codes: Summary - Emergency: CONDOMINIUM PROPERTY MANAGER ([id number])
--- NOTE | 2025-02-06 15:04 | W.ANESCHARGE ---
Anesthesia Charges Start Date/Time Anesthesia Start Date: 02/06/25 Anesthesia Start Time: 13:29 Stop Date/Time Anesthesia Stop Date: 02/06/25 Anesthesia Stop Time: 14:59 Summary Emergency: DAVY Coding CPT Codes CPT Codes: ANESTH SURG UPPER ABDOMEN - 27287 ([id number]) P2 - PATIENT W/MILD SYST DISEASE, QK - HEALTH TECHNICAL WRITER 2-4 CNCRNT ANES PROC, QX - FORTUNE TELLER SVC W/ MD MED DIRECTION Additional Codes: Summary - Emergency: DAVY ([id number])
--- NOTE | 2025-02-06 15:04 | W.ANESCHARGE ---
Anesthesia Charges Start Date/Time Anesthesia Start Date: 02/06/25 Anesthesia Start Time: 13:29 Stop Date/Time Anesthesia Stop Date: 02/06/25 Anesthesia Stop Time: 14:59 Summary Emergency: MARINE STEWARD Coding CPT Codes CPT Codes: ANESTH SURG UPPER ABDOMEN - 98937 ([id number]) P2 - PATIENT W/MILD SYST DISEASE, QK - TECHNOLOGY SALES SPECIALIST 2-4 CNCRNT ANES PROC, QX - MARINE STEWARD SVC W/ MD MED DIRECTION Additional Codes: Summary - Emergency: MARINE STEWARD ([id number])
[2025-02-06] MEDS: ACETAMINOPHEN 325 MG TABLET 650 MG PO (16:42)
[2025-02-06] MEDS: HYDROCODONE-ACETAMIN 5-325 MG 1 TAB PO (18:25)
--- NOTE | 2025-02-06 19:07 | PC.NURSE ---
End of Shift: patient pleasant and cooperative, A&O. VSS, afebrile. spO2 maintained above 90% on RA. Patient reports pain to opsite this shift, managed with PRN medication, see MAR. Pt has been voiding, tolerating regular diet. Independent in room.
--- NOTE | 2025-02-06 20:15 | PC.NURSE ---
[facility] prescription printed for Bath 5mg-325mg as needed every 6 hours. 4 Tablets were to be filled. Deana Velarde called to obtain order. Will sign order tomorrow.
== END 2025-02-06 19:45 | disposition home or self-care (01) ==
LOC: ED 12:40 → OR 13:36 → MEDSURG 15:51
PROVIDERS: Emergency Provider Student in an Organized Health Care Education/Training Program; PCP Physician Assistant Medical; Visit Provider Surgery
PROC: 0FT44ZZ Resection of Gallbladder, Percutaneous Endoscopic Approach (ICD-10-PCS; CPT 47562; principal; 2025-02-06 13:30)
DX: K80.00 Calculus of gallbladder with acute cholecystitis without obstruction (principal); K82.1 Hydrops of gallbladder; R10.11 Right upper quadrant pain; I10 Essential (primary) hypertension; J45.909 Unspecified asthma, uncomplicated
CPT/HCPCS: 47562; 00790; 36415; 76705; 80048; 80076; 81001; 83690; 85025; 87086; 87631; 88304; 99140; 99285; A9270; J0330; J0665; J0744; J1100; J1836; J1885; J2250; J2270; J2405; J2704; J3010; J3490; J7120